=== PATIENT | male | born 1965 | race African-American/Black ===

== ENCOUNTER 2025-07-17 11:55 | Emergency (ER) | payer OTHER, SELFPAY | END 2025-07-17 15:10 | disposition home or self-care (01) | LOC: CSHERS 11:55 | DX: Z43.1 Encounter for attention to gastrostomy (principal); K21.9 Gastro-esophageal reflux disease without esophagitis; Z79.899 Other long term (current) drug therapy | CPT/HCPCS: 99283 ==